=== PATIENT | female | born 2000 | race Caucasian/White ===

== ENCOUNTER → 2023-09-24 | Outpatient (CLI) | payer BC ==
--- NOTE | 2023-09-24 11:49 | US ---
EXAMINATION TYPE: US thyroid st tissue head/neck DATE OF EXAM: 09/24/2023 COMPARISON: NONE CLINICAL INDICATION: Female, 22 years old with history of R59.0 LOCALIZED ENLARGED LYMPH NODES; 4 rec ent episodes of Right sided neck swelling Technique: Grayscale imaging of the neck. There is a morphologically normal lymph node which is at th e upper limits of normal. FINDINGS: Right sided lymphadenopathy, largest lymph node inferior to submandibular gland measured: 4.0x0.9x1.5 cm. IMPRESSION: There is an enlarged right neck lymph node which is at the upper limits of normal for size. Given pat ient's age this is likely reactive. Consider short-term follow-up ultrasound of the neck.
== END | disposition home or self-care (01) ==
LOC: RADUSWWP 09:39
PROVIDERS: ATTEND Family Medicine
DX: R59.0 Localized enlarged lymph nodes (principal)
CPT/HCPCS: 76536

== ENCOUNTER → 2023-10-27 | Outpatient (CLI) | payer BC ==
--- NOTE | 2023-10-27 11:24 | CT ---
EXAMINATION TYPE: CT soft tissue neck w con DATE OF EXAM: 10/27/2023 COMPARISON: None HISTORY: RT sided neck swelling x3 week CT DLP: 570.50 mGycm CONTRAST: CT scan of the neck is performed with IV Contrast, patient injected with 100ml mL of Isovue 300. Contrast enhanced CT of the neck was performed from the skull base through the lung apices. AIRWAY: There is thickening of the tonsillar pillars bilaterally. Correlate for tonsillitis. There is also prominence of the adenoids with AP measurement of 1.5 cm. No evidence for abscess. The suprag lottic, glottic, and subglottic portions of the airway appear patent and free of mass. SALIVARY GLANDS: The submandibular and parotid glands are free of mass or inflammatory process. THYROID GLAND: No nodules or masses seen. LYMPH NODES: There are mildly enlarged lymph nodes within the internal jugular chains bilaterally. On the right and enlarged lymph node measures about 1.5 x 1.0 cm and on the left L1 0.3 x 1.3 cm. There are subcentimeter lymph nodes about the submandibular glands bilaterally. Subcentimeter lymph nodes are also seen within the posterior triangles bilaterally. The findings may reflect reactive change. LUNG APICES: No nodule or mass is seen. OTHER: Vascular structures are patent. No significant degenerative change of the cervical spine. N o abscess seen. IMPRESSION: 1.There is thickening of the tonsillar pillars bilaterally. Correlate for tonsillitis. There is also prominence of the adenoids with AP measurement of 1.5 cm. 2. Bilateral mild adenopathy could be reactive in nature clinically.
== END | disposition home or self-care (01) ==
LOC: RADCTMAIN 09:33
PROVIDERS: ATTEND Otolaryngology
DX: J35.1 Hypertrophy of tonsils (principal); R59.0 Localized enlarged lymph nodes
CPT/HCPCS: 70491; Q9967